=== PATIENT | female | born 1970 | race Caucasian/White ===

== ENCOUNTER 2017-07-04 09:29 | Emergency (ER) | payer BC ==
--- NOTE | 2017-07-04 11:05 | UC ---
Throat Pain/Nasal Rishi HPI - HPI Summary HPI Summary: Pt c/o sinus pressure and pain X 10 days. Pt has history of chronic sinusitis and sinus surgery. - History of Current Complaint Chief Complaint: UCRespiratory Stated Complaint: SINUS Time Seen by Provider: 07/04/17 10:35 Hx Obtained From: Patient Hx Last Menstrual Period: 06/17/17 ?: No Onset/Duration: Gradual Onset, Lasting Days - 10 Severity: Moderate Associated Signs & Symptoms: Positive: Sinus Discomfort Related History: Seasonal Allergies, Prior ENT Surgery - Epiglottits Risk Factors Epiglottis Risk Factors: Negative - Allergies/Home Medications Allergies/Adverse Reactions: Allergies Allergy/AdvReac Type Severity Reaction Status Date / Time enviromental Allergy Mild sinus Uncoded 05/12/16 19:04 pain meds AdvReac Itching Uncoded 07/04/17 10:38 PMH/Surg Hx/FS Hx/Imm Hx Previously Healthy: Yes - Surgical History Surgical History: Yes Surgery Procedure, Year, and Place: sinus x3. colon sx - Family History Known Family History: Positive: None, Hypertension - Social History Occupation: Employed Full-time Lives: With Family Alcohol Use: Occasionally Substance Use Type: None Smoking Status (MU): Never Smoked Tobacco Have You Smoked in the Last Year: No Review of Systems Constitutional: Fatigue Skin: Negative Eyes: Negative ENT: Sinus Congestion, Sinus Pain/Tenderness Respiratory: Negative Cardiovascular: Negative Gastrointestinal: Negative Genitourinary: Negative Motor: Negative Neurovascular: Negative Musculoskeletal: Negative Neurological: Headache Psychological: Negative Is Patient Immunocompromised?: No All Other Systems Reviewed And Are Negative: Yes Physical Exam Triage Information Reviewed: Yes Appearance: Ill-Appearing Vital Signs: Initial Vital Signs Temp 98.2 F 07/04/17 10:34 Pulse 68 07/04/17 10:34 Resp 16 07/04/17 10:34 BP 131/82 07/04/17 10:34 Pulse Ox 100 07/04/17 10:34 Vital Signs Reviewed: Yes Eye Exam: Normal ENT Exam: Other ENT: Positive: Nasal congestion, Sinus tenderness Dental Exam: Normal Neck exam: Normal Respiratory Exam: Normal Cardiovascular Exam: Normal Abdominal Exam: Normal Musculoskeletal Exam: Normal Neurological Exam: Normal Psychological Exam: Normal Skin Exam: Normal Throat Pain/Nasal Course/Dx - Differential Dx/Diagnosis Differential Diagnosis/HQI/PQRI: Sinusitis, URI Provider Diagnoses: sinusitis Discharge - Discharge Plan Condition: Stable Disposition: HOME Prescriptions: Amoxicillin PO (*) [Amoxicillin 875 MG (*)] 875 mg PO Q12H #20 tab Fluconazole 100 MG TAB* [Diflucan 100 MG TAB*] 100 mg PO DAILY #2 tab predniSONE TAB* [Deltasone TAB*] 40 mg PO DAILY #4 tab Pseudoephedrine-Guaifenesin [Mucinex D 60-600 mg] 1 tab PO DAILY #10 tab Patient Education Materials: Sinusitis (ED) Referrals: Vaughn Hess DO [Primary Care Provider] - If Needed
[2017-07-04 11:11] VITALS: BP 131/82
== END 2017-07-04 11:15 | disposition home or self-care (01) ==
LOC: UCCORT 09:29
DX: J32.9 Chronic sinusitis, unspecified (principal); Z72.89 Other problems related to lifestyle
CPT/HCPCS: 99212; G0463

== ENCOUNTER 2019-06-06 15:34 | Emergency (ER) | payer BC ==
[2019-06-06 15:58] VITALS: BP 137/97
--- NOTE | 2019-06-06 16:09 | UC ---
Throat Pain/Nasal Rishi HPI - HPI Summary HPI Summary: 48-year-old female who has had head congestion and worsening sinus pressure and postnasal drainage over the past 9 days. She states now she is unable to sleep without a lot of postnasal drainage and coughing. She has tried numerous over- the-counter remedies without improvement. She is a nonsmoker, she did receive a flu shot this year. - History of Current Complaint Chief Complaint: UCRespiratory Stated Complaint: POSSIBLE SINUS INFECTION Time Seen by Provider: 06/06/19 16:09 Hx Obtained From: Patient Hx Last Menstrual Period: 04/17/16 ?: No Onset/Duration: Gradual Onset Severity: Moderate Pain Intensity: 7 Cough: Productive - Occasional productive cough of greenish/yellow sputum which she thinks is from her sinuses. Associated Signs & Symptoms: Positive: Sinus Discomfort, Nasal Discharge - Allergies/Home Medications Allergies/Adverse Reactions: Allergies Allergy/AdvReac Type Severity Reaction Status Date / Time enviromental Allergy Mild sinus Uncoded 06/06/19 15:53 pain meds AdvReac Itching Uncoded 06/06/19 15:53 PMH/Surg Hx/FS Hx/Imm Hx Previously Healthy: Yes Neurological History: Migraine - Surgical History Surgical History: Yes Surgery Procedure, Year, and Place: sinus x3. - Family History Known Family History: Positive: None, Hypertension - Social History Alcohol Use: Occasionally Substance Use Type: None Smoking Status (MU): Never Smoked Tobacco Have You Smoked in the Last Year: No Review of Systems All Other Systems Reviewed And Are Negative: Yes ENT: Positive: Nasal Discharge, Sinus Congestion, Sinus Pain/Tenderness Respiratory: Positive: Cough - Occasional productive cough of greenish yellow sputum which the patient states is from her postnasal drainage. Is Patient Immunocompromised?: No Physical Exam Triage Information Reviewed: Yes Appearance: Well-Appearing, No Pain Distress, Well-Nourished Vital Signs: Initial Vital Signs Temp 100 F 06/06/19 15:54 Pulse 73 06/06/19 15:54 Resp 16 06/06/19 15:54 BP 137/97 06/06/19 15:54 Pulse Ox 99 06/06/19 15:54 Vital Signs Reviewed: Yes Eyes: Positive: Conjunctiva Clear ENT: Positive: Pharynx normal - Yellow purulent postnasal drainage., Nasal congestion, Nasal drainage - Yellow purulent nasal coryza., TMs normal, Sinus tenderness - Tender over the maxillary sinuses bilaterally., Uvula midline Neck: Positive: Supple, Nontender, No Lymphadenopathy Respiratory: Positive: Lungs clear, Normal breath sounds, No respiratory distress, No accessory muscle use Cardiovascular: Positive: RRR, No Murmur, Pulses Normal, Brisk Capillary Refill Abdomen Description: Positive: Nontender, No Organomegaly, Soft. Negative: CVA Tenderness (R), CVA Tenderness (L), Distended, Guarding, Hepatomegaly, McBurney' s Point Tenderness, Splenomegaly Bowel Sounds: Positive: Present Musculoskeletal Exam: Normal Neurological Exam: Normal Psychological Exam: Normal Skin Exam: Normal Throat Pain/Nasal Course/Dx - Course Course Of Treatment: At this point in time the patient is requesting prednisone because last time she had a bad sinus infection that helped reduce swelling and drainage. She's also requesting Flonase. I'm also going to give her a prescription for benzonatate and Augmentin 875 mg by mouth twice a day 10 days. She states increase fluids. Definite follow-up with her primary care provider in 4 or 5 days if no improvement. - Differential Dx/Diagnosis Provider Diagnosis: Sinusitis Discharge ED - Sign-Out/Discharge Documenting (check all that apply): Patient Departure All imaging exams completed and their final reports reviewed: No Studies - Discharge Plan Condition: Fair Disposition: HOME Prescriptions: Amoxicillin/Clavulanate TAB* [Augmentin TAB 875*] 875 mg PO BID 10 Days #20 tab Benzonatate CAP* [Tessalon 100 MG CAP*] 100 mg PO TID PRN #30 cap PRN Reason: Cough Fluticasone NASAL SPRAY 50MCG* [Flonase NASAL SPRAY 50MCG*] 2 spray BOTH NARES DAILY 7 Days #1 btl predniSONE TAB* [Deltasone 10 MG TAB*] 10 mg PO DAILY 12 Days #30 tab Patient Education Materials: Sinusitis (ED) Referrals: Indu Dsouza MD [Primary Care Provider] - Additional Instructions: Increase fluids, you may want to sleep in an upright position for a few days. Take the Augmentin with food. Follow-up with your primary care provider if no improvement in 4 or 5 days. - Billing Disposition and Condition Condition: FAIR Disposition: Home
== END 2019-06-06 16:30 | disposition home or self-care (01) ==
LOC: UCCORT 15:34
DX: J32.9 Chronic sinusitis, unspecified (principal); R05 Cough; Z91.09 Other allergy status, other than to drugs and biological substances; Z88.6 Allergy status to analgesic agent
CPT/HCPCS: 99212; G0463